=== PATIENT | female | born 1950 | race Caucasian/White ===

== ENCOUNTER 2017-10-24 11:19 | Outpatient (CLI) | payer MEDICARE ==
--- NOTE | 2017-10-24 11:42 | RAD ---
RIGHT HIP TWO VIEWS: History: Hip pain. No history of trauma given. FINDINGS: There are mild arthritic changes of the hip joint. There are no signs of fracture or dislocation. IMPRESSION: Mild arthritic changes of the hip without significant joint space narrowing and minimal spur formatio n. POS: [facility]
== END 2017-10-24 11:20 | disposition home or self-care (01) ==
LOC: RAD-FRANK 11:19
PROVIDERS: ATTEND Nurse Practitioner Family
DX: M25.551 Pain in right hip (principal); M16.11 Unilateral primary osteoarthritis, right hip

== ENCOUNTER 2022-11-29 15:04 | Outpatient (CLI) | payer MEDICARE, OTHER | END 2022-11-29 15:05 | disposition home or self-care (01) | LOC: RAD-FRANK 15:04 | PROVIDERS: ATTEND Nurse Practitioner Family | DX: M48.061 Spinal stenosis, lumbar region without neurogenic claudication (principal); M47.816 Spondylosis without myelopathy or radiculopathy, lumbar region; M51.36 Other intervertebral disc degeneration, lumbar region | CPT/HCPCS: 72100 ==

== ENCOUNTER 2023-02-19 11:21 | Outpatient (CLI) | payer MEDICARE, OTHER | END 2023-02-19 11:22 | disposition home or self-care (01) | LOC: RAD-FRANK 11:21 | PROVIDERS: ATTEND Nurse Practitioner Family | DX: F17.200 Nicotine dependence, unspecified, uncomplicated (principal); R91.1 Solitary pulmonary nodule | CPT/HCPCS: 71046 ==

== ENCOUNTER 2025-11-06 12:55 | Emergency (ER) | payer MEDICARE, OTHER ==
[2025-11-06 14:15] LABS: #Basophils 0.06 10x3/uL (0.0-0.2); #Eosinophils Less than 0.03 10x3/uL (0.0-0.7); #Monocytes 0.32 10x3/uL (0.11-0.59); #Neutrophils 4.50 10x3/uL (1.40-6.50); %Basophils 0.9 % (0.0-1.0); %Eosinophils 0.3 % (0.0-10.0); %Lymphocytes 25.6 % (21.0-51.0); %Monocytes 4.8 % (0.0-10.0); %Neutrophils 68.2 % (42.0-75.0); Hematocrit 40.7 % (36.0-47.0); Hemoglobin 13.5 g/dL (12.0-16.0); Mean Corpuscular Hemoglobin 31.5 pg (27.0-31.0); Mean Corpuscular Volume 94.9 fL (78.0-98.0); Platelet Count 224 10x3/uL (130-400); Red Blood Cell (RBC) Count 4.29 mill/uL (4.20-5.40); White Blood Cell (WBC) Count 6.60 10x3/uL (4.8-10.8)
[2025-11-06 14:50] LABS: ALT (SGPT) 11 U/L (Less than 34); AST (SGOT) 19 U/L (11-34); Albumin 4.3 g/dL (3.1-4.5); Alkaline Phosphatase 84 U/L (40-110); Anion Gap 13 mmol/L (10-20); BUN (Urea Nitrogen) 8 mg/dL (9.8-20.1); Bilirubin, Total 0.4 mg/dL (0.3-1.2); Calc. Creatinine Clearance 0 mL/min (70-130); Calcium 9.3 mg/dL (7.8-10.44); Carbon Dioxide 26 mmol/L (23-31); Chloride 104 mmol/L (98-107); Globulin 3.3 g/dL (2.4-3.5); Glucose 99 mg/dL (83-110); Magnesium 2.3 mg/dL (1.6-2.6); Potassium 3.8 mmol/L (3.5-5.1); Sodium 139 mmol/L (136-145)
[2025-11-06 14:51] LABS: Acetaminophen Less than 10 mcg/mL (Less than 10); Salicylate Less than 8.0 mg/dL (Less than 8.0)
[2025-11-06 16:28] LABS: CAUTI Indications for Culture Alt mental st,lethar; Glucose, Urine (Dipstick) Normal (Negative); Leukocyte Negative Leu/uL (Negative); Protein, Urine (Dipstick) Negative (Neg-Trace); RBC/HPF 0-3 HPF (0-3); Specific Gravity, Urine 1.012 (1.002-1.036); WBC/HPF 0-3 HPF (0-3)
[2025-11-06 16:29] LABS: Bacteria/HPF 1+ HPF (None Seen)
[2025-11-06 16:31] LABS: Urine Culture Reflex No No
[2025-11-06 16:34] LABS: Cocaine Metabolite Screen Negative (Negative); THC/Cannabinoid Screen Negative (Negative); Tricyclic Screen Negative (Negative)
== END 2025-11-06 17:15 | disposition home or self-care (01) ==
LOC: ERS 12:55
DX: R44.3 Hallucinations, unspecified (principal); E03.9 Hypothyroidism, unspecified; I10 Essential (primary) hypertension; F41.9 Anxiety disorder, unspecified; F17.210 Nicotine dependence, cigarettes, uncomplicated; Z79.890 Hormone replacement therapy
CPT/HCPCS: 36415; 70450; 71045; 80053; 80306; 80307; 81001; 83735; 84439; 84443; 85025; 87086; 93005